=== PATIENT | male | born 1950 | race Hispanic/Latino ===

== ENCOUNTER → 2025-08-09 | Outpatient (CLI) | payer OTHER ==
[~2025-08-09] MED LIST: GADOTERATE MEGLUMINE 10 MMOL/20 ML VIAL IV ONE
--- NOTE | 2025-08-13 13:33 | HMCIMG ---
EXAM: MR Abdomen with and without Intravenous Contrast. CLINICAL HISTORY: K86.89 Other specified diseases of pancreas. TECHNIQUE: Multisequence, multiplanar magnetic resonance images of the abdomen with and without intravenous contrast. Series acquired: CONTRAST: Clariscan 11ml COMPARISON: None provided. FINDINGS: LOWER THORAX: No pleural effusion. LIVER: Unremarkable. GALLBLADDER AND BILE DUCTS: Overdistended gallbladder. Mild intrahepatic biliary ductal dilatation is seen in both hepatic lobes. The common bile duct is dilated, measuring up to 1.2 cm in diameter. There is soft tissue thickening noted in the distal common bile duct and periampullary region, concerning for an obstructing lesion. 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 A multiloculated cystic collection is seen in the pancreatic tail, with an indwelling drainage catheter, likely representing a treated pseudocyst or walled-off necrosis. SPLEEN: Unremarkable. ADRENALS: Unremarkable. KIDNEYS: The kidneys appear within normal limits. No hydronephrosis or mass evident. Simple cortical cysts are seen in both kidneys, the largest measuring 4.2 x 4 cm in the left mid pole. STOMACH AND BOWEL: Limited evaluation of the stomach and bowel demonstrates no acute process. LYMPH NODES: No lymphadenopathy is evident. VASCULATURE: No abdominal aortic aneurysm. ASCITES: Minimal free fluid is noted in the abdomen. IMPRESSION: Distal biliary obstruction suggested by a dilated common bile duct (1.2 cm) and mild intrahepatic ductal dilatation. Associated soft tissue thickening at the distal common bile duct and periampullary region is concerning for a possible neoplastic or inflammatory etiology. Recommend further evaluation with EUS and/or ERCP is clinically appropriate. Dilated pancreatic duct (1.0 cm) with a T2 hyperintense lesion in the head/uncinate process of the pancreas, possibly representing a multiseptated cystic lesion or dilated side branches, suggestive of a side-branch IPMN. Recommend follow-up with MRCP or endoscopic evaluation if warranted. Multiloculated cystic lesion in the pancreatic tail with a drainage catheter in situ, consistent with a treated pancreatic pseudocyst or walled-off necrosis, likely related to prior pancreatitis. Overdistended gallbladder without evidence of cholelithiasis. Minimal ascites. /[place]
== END | disposition home or self-care (01) ==
LOC: RAH 07:51
PROVIDERS: ATTEND Surgery Surgical Oncology
DX: N28.1 Cyst of kidney, acquired (principal); K86.89 Other specified diseases of pancreas; N32.89 Other specified disorders of bladder
CPT/HCPCS: 74183; A9575